=== PATIENT | female | born 1985 | race African-American/Black ===

== ENCOUNTER 2017-07-10 15:56 | Emergency (ER) | payer OTHER ==
[~2017-07-10] VITALS: Wt 64.9 kg
--- NOTE | 2017-07-10 17:04 | ERD ---
ER Documentation Chief Complaint Chief Complaint vag bleed w blood clots, unk preg HPI vaginal bleeding on OCP's x 10 years, pt reports that she is using tampons and pads, pt saturated threw paints to seat while driving. pt reports that this AM she was having sharp cramps which have subsided to dull ache. denies dysuria , took Diflucan 2 weeks ago, denies ABX. sexually active ROS All systems reviewed and are negative except as per history of present illness. PMhx/Soc Medical and Surgical Hx: pt denies Medical Hx, pt denies Surgical Hx Hx Alcohol Use: No Hx Substance Use: No Smoking Status: Never smoker Physical Exam Vitals Vital Signs Date Time Temp Pulse Resp B/P Pulse Ox O2 Delivery O2 Flow Rate FiO2 07/10/17 15:58 98.9 20 139/90 100 Physical Exam Const: Well-nourished well-appearing well-hydrated 32-year-old female in no acute distress Head: Eyes: ENT: Neck: Resp: Cardio: Abd: Abdomen soft, symmetric, lower quadrant tenderness, no CVA tenderness Skin: Back: No midline or flank tenderness Ext: No cyanosis, or edema Neur: Awake and alert Psych: Normal Mood and Affect Results 24 hrs Laboratory Tests Test 07/10/17 17:17 Bedside Urine pH (LAB) 6.0 Bedside Urine Protein (LAB) Trace Bedside Urine Glucose (UA) Negative Bedside Urine Ketones (LAB) Trace Bedside Urine Blood 1+ Bedside Urine Nitrite (LAB) Negative Bedside Urine Leukocyte Esterase (L Negative Urinalysis negative for evidence of infection, UA hCG negative for evidence of Procedures/MDM This 32-year-old female presents to emergency department for dysmenorrhea, excessive vaginal bleeding, patient reports that she is on oral contraceptive pills for the last 10 years does not miss them take him at the same time every day, reports today while having a bowel movement a stream of blood came out of her vagina. Patient reports cramping, denies dysuria. Denies history of dysfunctional uterine bleeding, reports no history of uterine fibroids, endometriosis, or possibility of , denies antibiotic use recently reports only that she has used Diflucan for [place] vaginosis a few weeks ago. Emergency room course includes UA hCG, and urinalysis, UA hCG negative for evidence of , urinalysis negative for evidence of a of infection. Patient will be discharged home to follow-up with gynecology as planned, patient is stable with no new complaints during ER course, clinically there is no current evidence to suggest meningitis, sepsis, acute abdomen, , ovarian torsion, fibroids, endometriosis, urinary tract infection, pyelonephritis condition appearing to require further evaluation or hospitalization. I feel the patient is stable for discharge at this time. I have discussed results, examination findings, the treatment plan with the patient and family present prior to discharge. Indications for emergent reevaluation, side effects of medication were also discussed. All questions were answered. Patient verbalizes understanding and agrees with plan of care. Departure Diagnosis: Primary Impression: Excessive vaginal bleeding Condition: Good Patient Instructions: Dysmenorrhea Additional Instructions: Thank you for for coming to [facility] for your care today. Please ask your nurse or provider if you have questions about your care today and do not leave until all your questions have been answered. Please use any medications given as directed and follow-up with your doctor (or the doctor you were referred to) in the next 2-3 days. If you do not have a primary care doctor you may follow up at the [facility] [place] (listed below). You may also use motrin and tylenol as needed for fever and/or pain unless instructed otherwise by your provider or nurse. Indications for more urgent follow-up have been discussed, but you may return to the Emergency Department at ANY time for any worrisome or worsening symptoms. If you have abdominal pain, please know that no test or exam you received is perfect and you should follow up within 8 hours for continued pain. If you had any imaging studies today, such as an X-Ray or CT Scan, these studies will be reviewed later by a radiologist. You will be called if there are important findings that were not identified today, so make sure the contact information you provided at registration is correct. If you received any narcotic pain control medicine today, such as Vicodin, Morphine or Dilaudid, your coordination and judgment may be affected for a number of hours. Please do not drive or operate heavy machinery, and you may want someone to assist you at home. If you were given a prescription for narcotic medication, be aware that it is very addictive- use sparingly and only if necessary. HEBERT CHO Jul 10, 2017 17:04
[2017-07-10 17:18] LABS: URINE BLOOD (Dip) POC 1+ (NEGATIVE)
== END 2017-07-10 18:05 | disposition home or self-care (01) ==
LOC: FTE 15:56
DX: N93.9 Abnormal uterine and vaginal bleeding, unspecified (principal)
CPT/HCPCS: 81003; 99282